=== PATIENT | female | born 1985 | race Caucasian/White ===

== ENCOUNTER 2021-06-19 09:52 | Emergency (ER) | payer OTHER ==
[~2021-06-19] VITALS: Ht 162.6 cm; Wt 88.0 kg
[~2021-06-19 09:52] MED LIST: NO HOME MEDS
[2021-06-19] MEDS ORDERED: NAPR-56 PO (10:47)
[2021-06-19 10:55] VITALS: BP 129/96
== END 2021-06-19 11:02 | disposition home or self-care (01) ==
LOC: ER 09:52
DX: M25.562 Pain in left knee (principal); M79.672 Pain in left foot; M79.675 Pain in left toe(s); Z79.899 Other long term (current) drug therapy
CPT/HCPCS: 99282

== ENCOUNTER 2022-09-22 22:08 | Emergency (ER) | payer SELFPAY ==
[~2022-09-22] VITALS: Ht 162.6 cm; Wt 97.7 kg
[2022-09-22 22:20] VITALS: BP 152/108
== END 2022-09-22 23:17 | disposition left against medical advice (07) ==
LOC: ER 22:08
DX: M79.603 Pain in arm, unspecified (principal); Z53.21 Procedure and treatment not carried out due to patient leaving prior to being seen by health care provider